=== PATIENT | male | born 1970 | race Two or more races ===

== ENCOUNTER 2022-10-28 19:54 | Emergency (ER) | payer MEDICAID, OTHER ==
[~2022-10-28] VITALS: Ht 165.1 cm; Wt 77.3 kg
[2022-10-28 20:00] VITALS: TEMP 98.4
[2022-10-28] MEDS ORDERED: BACITRACIN 28 GM OINTMENT TP ONE (20:30)
[2022-10-28] MEDS ORDERED: ACETAMINOPHEN/CODEINE 300-30 MG TABLET PO ONE (20:30)
[2022-10-28] MEDS ORDERED: LIDOCAINE 1% 10 ML VIAL INJ ONE (20:30)
[2022-10-28] MEDS ORDERED: IBUPROFEN 600 MG TABLET PO ONE (20:30)
[2022-10-28] MEDS ORDERED: PERTUSS(ACELL),DIPH,TET VAC/PF 0.5 ML SYRINGE IM. ONE (20:30)
[2022-10-28 23:12] VITALS: BP 150/83; PULSE 118; RESP 15
[2022-10-28] MEDS ORDERED: HYDR-4072 PO (23:17)
[2022-10-28] MEDS ORDERED: IBUP-1554 PO (23:17)
[2022-10-28] MEDS ORDERED: CEPH-558 PO (23:17)
[2022-10-28] MEDS ORDERED: BACI28.410 TP (23:17)
== END 2022-10-28 23:30 | disposition home or self-care (01) ==
LOC: EMS 19:56
DX: S01.81XA Laceration without foreign body of other part of head, initial encounter (principal); S20.212A Contusion of left front wall of thorax, initial encounter; S60.812A Abrasion of left wrist, initial encounter; S60.413A Abrasion of left middle finger, initial encounter; S60.415A Abrasion of left ring finger, initial encounter; S60.417A Abrasion of left little finger, initial encounter; F17.210 Nicotine dependence, cigarettes, uncomplicated; V00.148A Other scooter (nonmotorized) accident, initial encounter; Y93.I9 Activity, other involving external motion; Y92.89 Other specified places as the place of occurrence of the external cause; Y99.8 Other external cause status
CPT/HCPCS: 99285; 70450; 71045; 70486; 90715; 90471; 12014; J3490

== ENCOUNTER 2022-11-01 15:42 | Emergency (ER) | payer OTHER ==
[~2022-11-01] VITALS: Ht 165.1 cm; Wt 77.3 kg
[~2022-11-01 15:42] MED LIST: BACI28.410 TP; CEPH-558 PO; HYDR-4072 PO; IBUP-1554 PO
[2022-11-01 16:05] VITALS: TEMP 98.2
[2022-11-01] MEDS ORDERED: DiphenhydrAMINE HCL 50 MG/ML VIAL IM ONE (17:15)
[2022-11-01] MEDS ORDERED: HYDROmorphone HCL 2 MG/ML SYRINGE IM ONE (17:15)
[2022-11-01] MEDS ORDERED: BACITRACIN 0.9 GM PACKET OINTMENT TP ONE (18:00)
[2022-11-01] MEDS ORDERED: PERCT PO (18:11)
[2022-11-01] MEDS ORDERED: METO25XL PO (18:11)
[2022-11-01] MEDS ORDERED: POLY238P PO (18:11)
[2022-11-01 18:24] VITALS: BP 143/78; PULSE 89; RESP 18
== END 2022-11-01 18:24 | disposition home or self-care (01) ==
LOC: EMS 15:43
DX: S20.212D Contusion of left front wall of thorax, subsequent encounter (principal); S60.812D Abrasion of left wrist, subsequent encounter; S01.81XD Laceration without foreign body of other part of head, subsequent encounter; K59.00 Constipation, unspecified; F17.210 Nicotine dependence, cigarettes, uncomplicated; X58.XXXD Exposure to other specified factors, subsequent encounter
CPT/HCPCS: 99285; 71250; 74150; 96372; 72192; J1200; J1170